=== PATIENT | female | born 1960 | race Caucasian/White ===

== ENCOUNTER → 2024-01-11 | Day surgery (SDC) | payer BC ==
[2024-01-08 12:50] LABS: BASOPHILS % 0.5 % (0.0-1.0); EOSINOPHILS # (AUTO) 0.3 (0.0-0.4); HEMATOCRIT 34.8 % (34.2-44.1); HEMOGLOBIN 11.2 g/dL (12.0-16.0); MEAN CORPUSCULAR HEMOGLOBIN 29.4 pg (28-32); MEAN CORPUSCULAR HGB CONC 32.2 g/dL (31-35); MEAN CORPUSCULAR VOLUME 91.3 fL (81-99); MONOCYTES # (AUTO) 0.3 (0.2-0.8); MONOCYTES % 5.1 % (4.4-11.3); NEUTROPHILS # (AUTO) 3.9 (2.1-6.9); NEUTROPHILS % 59.1 % (38.7-80.0); PLATELET COUNT 282 x10e3/uL (140-360); RED BLOOD COUNT 3.81 x10e6/uL (3.6-5.1); RED CELL DISTRIBUTION WIDTH 12.7 % (11.7-14.4); WHITE BLOOD COUNT 6.61 x10e3/uL (4.8-10.8)
[2024-01-08 13:33] LABS: ALBUMIN 4.3 g/dL (3.5-5.0); ALBUMIN/GLOBULIN RATIO 1.3 (0.8-2.0); ANION GAP 14.4 mmol/L (8-16); BILIRUBIN,TOTAL 0.6 mg/dL (0.2-1.2); CALCIUM 9.7 mg/dL (8.4-10.2); CREATININE, SERUM 0.79 mg/dL (0.57-1.11); POTASSIUM 4.4 mmol/L (3.5-5.1); TOTAL PROTEIN 7.7 g/dL (6.5-8.1)
[~2024-01-11] MED LIST: ACETAMINOPHEN 1000 MG/100 ML IV ONE; BACITRACIN ZINC 15 GM OINT ONE; BIOTIN PO; BUPIVACAINE HCL 0.5% INJ 30 ML VIAL INJ ONE; CO Q-10200 MG PO; DEXAMETHASONE SOD PHOS INJ 4 MG/ML SDV ONE; EPINEPHRINE HCL 1:1000 1ML 1 MG/ML AMP ONE; FENTANYL CITRATE/PF 100MCG/2 ML INJ ONE; FEROSUL325 MG PO; KERATIN PO; MIDAZOLAM HCL 2 MG/2 ML VIAL ONE; ONDANSETRON HCL INJ 2MG/ML 2ML 2 MG/ML VIAL ONE; PROPOFOL IV EMULSION 10 MG/ML 20 ML VIAL ONE; ROPIVACAINE 0.5% 5 MG/ML 30 ML SDV ONE; ROSUVASTATIN CA10 MG PO; SEVOFLURANE INHAL SOLN 250 ML PEN BTL ONE; TUMERIC PO; VITAMIN D350 MC1 PO
[2024-01-11] MEDS: LACTATED RINGER'S 1,000 ML ONE (07:54)
[2024-01-11] MEDS: SODIUM CHLORIDE 0.9% 250ML 250 ML ONE (07:54)
[2024-01-11] MEDS: Vancomycin IV 1 GM VIAL ONE (07:55)
[2024-01-11 08:59] VITALS: TEMP 97.2
[2024-01-11 10:05] VITALS: BP 136/78; PULSE 74; RESP 16; O2SAT 99
== END | disposition home or self-care (01) ==
LOC: OR 05:25
PROVIDERS: ATTEND Podiatrist Foot Surgery
DX: M20.42 Other hammer toe(s) (acquired), left foot (principal); M21.272 Flexion deformity, left ankle and toes; D64.9 Anemia, unspecified; E78.5 Hyperlipidemia, unspecified; B19.20 Unspecified viral hepatitis C without hepatic coma; Z88.0 Allergy status to penicillin; Z01.810 Encounter for preprocedural cardiovascular examination; Z01.812 Encounter for preprocedural laboratory examination; Z01.818 Encounter for other preprocedural examination; Z79.899 Other long term (current) drug therapy
CPT/HCPCS: 28285 ×2; 28308; 36415; 71046; 80053; 85025; 93005; C1713 ×3; J0131; J0171; J1100; J2250; J2405; J2704; J2795; J3010; J3370; J7050; J7121; 76000